=== PATIENT | female | born 1975 | race Caucasian/White ===

== ENCOUNTER 2024-01-14 02:48 | Emergency (ER) | payer BC ==
[2024-01-14 03:25] LABS: #Basophils 0.03 10x3/uL (0.0-0.2); #Eosinophils 0.22 10x3/uL (0.0-0.5); #Monocytes 0.53 10x3/uL (0.0-1.1); #Neutrophils 2.28 10x3/uL (1.5-8.4); %Basophils 0.6 % (0.0-2.0); %Eosinophils 4.2 % (0.0-6.0); %Lymphocytes 41.6 % (18.0-47.0); %Monocytes 10.1 % (0.0-10.0); %Neutrophils 43.3 % (40.0-75.0); Hemoglobin 10.4 g/dL (12.0-15.5); Mean Corpuscular HGB CONC 32.5 g/dL (32.0-36.0); Mean Corpuscular Hemoglobin 27.4 pg (27.0-33.0); Mean Corpuscular Volume 84.2 fL (81.6-98.3); Mean Platelet Volume 9.5 fL (7.4-10.4); Platelet Count 318 10x3/uL (150-450); RBC Distribution Width 14.6 % (11.5-14.5); White Blood Cell (WBC) Count 5.3 10x3/uL (3.5-10.5)
[2024-01-14 03:29] LABS: BHCG - Serum Negative (NEGATIVE); Pregs Control Background? CLEAR/WHITE (CLR/WHITE); Pregs Control Bar Appear? YES (CONTROL BAR)
== END 2024-01-14 03:57 | disposition home or self-care (01) ==
LOC: CSHERS 02:48
DX: N92.0 Excessive and frequent menstruation with regular cycle (principal)
CPT/HCPCS: 36415; 84703; 85025; 99284

== ENCOUNTER 2024-04-07 13:27 | Outpatient (CLI) | payer BC | END 2024-04-07 13:28 | disposition home or self-care (01) | LOC: CSHLAB 13:27 | PROVIDERS: ATTEND Midwife | DX: Z01.812 Encounter for preprocedural laboratory examination (principal); D25.1 Intramural leiomyoma of uterus; D25.2 Subserosal leiomyoma of uterus | CPT/HCPCS: 84703; 85027; 86850; 86900; 86901 ==